=== PATIENT | male | born 1970 | race Caucasian/White ===

== ENCOUNTER 2019-06-25 09:08 | Emergency (ER) | payer MEDICARE ==
[~2019-06-25] VITALS: Ht 182.9 cm; Wt 179.1 kg
[~2019-06-25 09:08] MED LIST: TORADOL10 MG PO
[2019-06-25 09:13] VITALS: Ht 182.9 cm; Wt 179.1 kg
[2019-06-25 09:44] LABS: BASOPHILS 0.5 % (0-2); EOSINOPHILS 4.8 % (0-7); HEMATOCRIT 43.3 % (42.0-54.0); HEMOGLOBIN 14.5 g/dL (13.5-17.5); IMMATURE GRANULOCYTES 0.2 % (0-5); LYMPHOCYTES 22.2 % (15-50); MCH 30.5 pg (26.0-34.0); MCHC 33.5 g/dL (31.0-37.0); MEAN PLATELET VOLUME 10.5 fL (7.4-10.4); MONOCYTES 9.4 % (2-11); NEUTROPHILS 62.9 % (40-80); PLATELET COUNT 216 10x3/uL (130-400); RBC 4.76 10x6/uL (4.20-6.10); RDW 13.1 % (11.5-14.5); WBC 8.2 10x3/uL (4.8-10.8)
[2019-06-25 09:56] LABS: CALC OSMOLALITY 278 mosm/kg (275-300); CALCIUM 8.6 mg/dL (8.5-10.1); CARBON DIOXIDE 30.1 mmol/L (21.0-32.0); CHLORIDE - SERUM 100 mmol/L (98-107); CREATININE - SERUM 0.9 mg/dL (0.6-1.3); GLUCOSE 351 mg/dL (74-106); POTASSIUM - SERUM 4.2 mmol/L (3.5-5.1); SODIUM 132 mmol/L (136-145); UREA NITROGEN 12 mg/dL (7-18); eGFR NON AFRICAN AMERICAN > 90 mL/min (90-120)
[2019-06-25 10:01] LABS: ALBUMIN 2.8 g/dL (3.4-5.0); ALKALINE PHOSPHATASE 132 U/L (30-120); ALT (SGPT) 22 U/L (10-68); BILIRUBIN - TOTAL 0.35 mg/dL (0.2-1.3); PROTEIN - SERUM 8.2 g/dL (6.4-8.2)
[2019-06-25] MEDS ORDERED: ACETAMINOPHEN500 M1 PO (10:35)
[2019-06-25] MEDS ORDERED: CYCLOBENZAPRINE10 MG PO (10:35)
[2019-06-25] MEDS ORDERED: IBUPROFEN800 MG PO (10:35)
[2019-06-25 10:46] VITALS: BP 110/61
== END 2019-06-25 10:47 | disposition home or self-care (01) ==
LOC: D.ER 09:08
PROVIDERS: Family Medicine
DX: M79.604 Pain in right leg (principal); M79.18 Myalgia, other site; R73.03 Prediabetes